=== PATIENT | male | born 1995 | race Caucasian/White ===

== ENCOUNTER 2018-10-21 19:38 | Emergency (ER) | payer OTHER ==
[~2018-10-21] VITALS: Ht 190.5 cm; Wt 106.8 kg
[2018-10-21 19:38] VITALS: BP 126/81
[~2018-10-21 19:38] MED LIST: NORT10CA PO
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
[2018-10-21] MEDS ORDERED: BACITRACIN/POLYMYXIN B OPHTH OINTMENT 3.5GM TUBE. OU ONE (20:15)
[2018-10-21] MEDS ORDERED: HYDROcodon/IBUPROFEN 7.5/200MG 1 TAB TABLET PO ONE (20:15)
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
== END 2018-10-21 21:10 | disposition home or self-care (01) ==
LOC: ER 19:38
DX: S06.0X0A Concussion without loss of consciousness, initial encounter (principal); T20.20XA Burn of second degree of head, face, and neck, unspecified site, initial encounter; S00.83XA Contusion of other part of head, initial encounter; H10.9 Unspecified conjunctivitis; M54.2 Cervicalgia; F32.9 Major depressive disorder, single episode, unspecified; G43.909 Migraine, unspecified, not intractable, without status migrainosus; F10.20 Alcohol dependence, uncomplicated; Z88.8 Allergy status to other drugs, medicaments and biological substances; X98.2XXA Assault by hot fluids, initial encounter; Y04.0XXA Assault by unarmed brawl or fight, initial encounter; Y93.89 Activity, other specified; Y92.89 Other specified places as the place of occurrence of the external cause; Y99.8 Other external cause status; Y90.9 Presence of alcohol in blood, level not specified
CPT/HCPCS: 70450; 70486; 72125; 99284-25